=== PATIENT | male | born 1965 | race Caucasian/White ===

== ENCOUNTER 2018-05-30 17:33 | Emergency (ER) | payer MEDICAID ==
[~2018-05-30] VITALS: Ht 170.2 cm; Wt 75.0 kg
[~2018-05-30 17:33] MED LIST: HTN MEDS; OXYC30TA; WARF-53 PO
[2018-05-30] MEDS ORDERED: KETOROLAC 60MG/2ML VIAL IM ONE (23:15)
[2018-05-30] MEDS ORDERED: TETANUS, DIPHTHERIA, PERTUSSIS VAC/PF 0.5ML (>7YR OLD) IM ONE (23:15)
[2018-05-31 00:14] VITALS: BP 132/78
== END 2018-05-31 00:20 | disposition home or self-care (01) ==
LOC: ER 18:19
DX: L02.415 Cutaneous abscess of right lower limb (principal); R03.0 Elevated blood-pressure reading, without diagnosis of hypertension; Z23 Encounter for immunization
CPT/HCPCS: 90471; 90715; 96372; 99284; J1885

== ENCOUNTER 2018-07-24 15:44 | Emergency (ER) | payer MEDICAID ==
[~2018-07-24] VITALS: Ht 170.2 cm; Wt 75.0 kg
[2018-07-24] MEDS ORDERED: LEVETIRACETAM 500MG PREMIX 100 ML IV ONE (17:00)
[2018-07-24 17:57] LABS: BASOPHILS % 0.7 % (0.0-2.0); HEMATOCRIT. 43.8 % (42.0-52.0); HEMOGLOBIN. 14.8 g/dL (14.0-18.0); LYMPHOCYTES % 10.4 % (20.0-50.0); MEAN CORPUSCULAR HEMOGLOBIN 28.6 pg (28.0-32.0); MEAN CORPUSCULAR VOLUME 84.8 fL (80.0-94.0); MONOCYTES % 10.7 % (2.0-8.0); NEUTROPHILS % 77.2 % (40.0-76.0); PLATELET 424 x1000/uL (130-400); RED BLOOD CELL COUNT 5.16 mill/uL (4.7-6.1); RED CELL DISTRIBUTION WIDTH 13.7 % (11.6-14.6)
[2018-07-24 17:58] LABS: CHLORIDE 102 mEq/L (98-107)
[2018-07-24 18:00] LABS: PARTIAL THROMBOPLASTIN TIME 24.9 sec (23.4-31.0); PROTHROMBIN TIME 10.2 sec (9.1-11.1)
[2018-07-24 18:30] VITALS: BP 133/75
== END 2018-07-24 18:31 | disposition home or self-care (01) ==
LOC: ER 15:44
DX: R56.9 Unspecified convulsions (principal); F41.9 Anxiety disorder, unspecified; I10 Essential (primary) hypertension; F11.10 Opioid abuse, uncomplicated
CPT/HCPCS: 36415; 80053; 85025; 85610; 85730; 96365; 99283; J1953